=== PATIENT | female | born 1980 | race African-American/Black ===

== ENCOUNTER 2019-05-11 09:26 | Emergency (ER) | payer MEDICAID ==
[~2019-05-11] VITALS: Ht 165.1 cm; Wt 75.7 kg
[~2019-05-11 09:26] MED LIST: IBUPROFEN600 MG ORAL; NKM; TRAMADOL HCL50 MG ORAL
[2019-05-11 09:29] VITALS: BP 119/89
--- NOTE | 2019-05-11 09:34 | NUR ---
ED Nurse Note: Patient walked into ED from home c/o insect bite from unknown insect on the left posterior leg 3 days ago. patient reports it's itchy, painful 7/10, the pain does not radiate to anywhere else, the site appears red and swollen. no discharge noted. patient is alert awake x4 ambulatory steady gait, breathing unlabored and even.
--- NOTE | 2019-05-11 10:26 | Emergency Room Report ---
History of Present Illness General Chief Complaint: Skin Rash/Abscess Source: Patient Present Illness HPI This patient states that 3 days ago she was outside near her friend's pool. She noted that she may have been bitten by an insect at that time on her L. lower leg. She states over the past 3 days she has noted an area of swelling, redness and itching. She has no other lesions. She denies fever chills. She denies nausea or vomiting. She has no other complaints. Allergies: Coded Allergies: No Known Allergies (Unverified , 05/27/16) Patient History Past Medical History: none Past Surgical History: none Social History: Denies: smoking, alcohol use, drug use Now: No Reviewed Nursing Documentation: PMH: Agreed; PSxH: Agreed Nursing Documentation-PMH Past Medical History: No Stated History Review of Systems All Other Systems: negative except mentioned in HPI Physical Exam Vital Signs Date Time Temp Pulse Resp B/P (MAP) Pulse Ox O2 Delivery O2 Flow Rate FiO2 05/11/19 09:29 98.2 70 17 119/89 99 Room Air Sp02 EP Interpretation: reviewed, normal General Appearance: no apparent distress, alert, GCS 15, non-toxic Head: normocephalic, atraumatic Eyes: bilateral eye normal inspection, bilateral eye PERRL ENT: hearing grossly normal, normal pharynx, no angioedema, normal voice Neck: normal inspection Respiratory: no accessory muscle use, speaking full sentences Rectal: deferred Musculoskeletal: normal inspection, gait/station normal, normal range of motion Neurologic: alert, oriented x3, responsive, motor strength/tone normal, sensory intact, speech normal Psychiatric: judgement/insight normal, memory normal, mood/affect normal, no suicidal/homicidal ideation Skin: other - L. Leg with red, warm area 10x6cm. Central dark erythema. No fluctuance. Medical Decision Making Diagnostic Impression: Primary Impression: Insect bite Additional Impression: Cellulitis ER Course Patient has findings on exam consistent with an insect bite with what appears to be either a significant allergic reaction versus early cellulitis. As a precaution, I will go ahead and start this patient on a course of antibiotics. I will also give the patient topical hydrocortisone cream for the possible allergic component. She is nontoxic without systemic symptoms and well- appearing overall. She is given close return precautions and follow-up instructions. Last Vital Signs Date Time Temp Pulse Resp B/P (MAP) Pulse Ox O2 Delivery O2 Flow Rate FiO2 05/11/19 09:29 98.2 70 17 119/89 (99) 99 Room Air Status: improved Disposition: HOME, SELF-CARE Condition: Improved Referrals: NOT CHOSEN IPA/,REFERRING (PCP) Estrella Oliva DO May 11, 2019 10:26
[2019-05-11] MEDS ORDERED: DOXYCYCLINE MO100 MG ORAL (10:29)
[2019-05-11] MEDS ORDERED: ANTI-ITCH28 G1 TP (10:29)
[2019-05-11 10:40] VITALS: BP 119/89
--- NOTE | 2019-05-11 10:40 | NUR ---
ER DISCHARGE NOTE: Patient is cleared to be discharged per ERMD DR LOO, pt is aox4, on room air, with stable vital signs. pt was given dc and prescription instructions, pt was able to verbalize understanding, pt id band removed without complications. pt is able to ambulate with steady gait. pt took all belongings.
== END 2019-05-11 10:40 | disposition home or self-care (01) ==
LOC: EMR 10:05
DX: S80.862A Insect bite (nonvenomous), left lower leg, initial encounter (principal); L03.116 Cellulitis of left lower limb; W57.XXXA Bitten or stung by nonvenomous insect and other nonvenomous arthropods, initial encounter; Y92.008 Other place in unspecified non-institutional (private) residence as the place of occurrence of the external cause
CPT/HCPCS: 99281

== ENCOUNTER 2020-11-03 09:33 | Emergency (ER) | payer MEDICAID ==
[~2020-11-03] VITALS: Ht 165.1 cm; Wt 77.1 kg
[~2020-11-03 09:33] MED LIST changes: +ANTI-ITCH28 G1 TP; +DOXYCYCLINE MO100 MG ORAL
[2020-11-03 10:21] VITALS: BP 138/92
--- NOTE | 2020-11-03 10:21 | Emergency Room Report ---
History of Present Illness General Chief Complaint: Upper Extremity Injury Source: Patient Present Illness HPI Disclaimer: Please note that this report is being documented using DRAGON technology. This can lead to erroneous entry secondary to incorrect interpretation by the dictating instrument. HPI: 39-year-old [id number] female presents for injury to the left middle finger. Accidentally closed in a car door today. Denies skin breakdown. Notes swelling and pain. Difficulty flexing. No injury to the wrist or remainder of the upper extremity. Denies numbness or tingling. No prior history of injury. PMH: Reviewed PSH: Reviewed Allergies: Reviewed Social Hx: Reviewed Allergies: Coded Allergies: No Known Allergies (Unverified , 05/27/16) COVID-19 Screening Contact w/high risk pt: No Experienced COVID-19 symptoms?: No COVID-19 Testing performed SIGNAL INTEGRITY ENGINEER: No Patient History Now: No Review of Systems All Other Systems: negative except mentioned in HPI Physical Exam Vital Signs Date Time Temp Pulse Resp B/P (MAP) Pulse Ox O2 Delivery O2 Flow Rate FiO2 11/03/20 10:12 99.0 85 18 138/92 (107) 97 Room Air General: Awake and alert, no acute distress HEENT: NC/AT. EOMI. Resp: Normal work of breathing Skin: Intact. No abrasions, laceration or rash over the exposed skin MSK: Normal tone and bulk. Moving all extremities. Swelling of the middle finger on the left hand. Nonfusiform. No overlying erythema or skin breakdown Neuro: Awake and alert. Mentating appropriately Medical Decision Making Diagnostic Impression: Primary Impression: Finger contusion ER Course 39-year-old female presents for evaluation of left middle finger injury after slamming it in a car door this morning. No osseous injury identified on x-ray. Patient placed in a splint for comfort and stability. Treated with NSAIDs. Instructed on RICE injury care. Instructed to return new or worsening symptoms. Last Vital Signs Date Time Temp Pulse Resp B/P (MAP) Pulse Ox O2 Delivery O2 Flow Rate FiO2 11/03/20 10:12 99.0 85 18 138/92 (107) 97 Room Air Disposition: HOME, SELF-CARE Condition: Stable Scripts Ibuprofen* (MOTRIN*) 600 Mg Tablet 600 MG ORAL Q6H PRN for For Pain, #30 TAB 0 Refills Prov: Efra Traylor MD 11/03/20 Efra Traylor MD Nov 03, 2020 10:21
[2020-11-03] MEDS ORDERED: HYDROcodone/Acetamin 5/325 tab ORAL ONE (10:30)
--- NOTE | 2020-11-03 10:30 | NUR ---
ED Nurse Note: pt stated her daughter accidently slammed her hand in the car door early this morning. thought it wasn't that bad, middle finger edematous, bruised and painful to move.
[2020-11-03] MEDS ORDERED: IBUPROFEN600 M1 ORAL (10:36)
--- NOTE | 2020-11-03 11:11 | NUR ---
ER DISCHARGE NOTE: Patient is cleared to be discharged per ERMD, pt is aox4, on room air, with stable vital signs. pt was given dc and prescription instructions, pt was able to verbalize understanding. pt is able to ambulate with steady gait. pt took all belongings.
--- NOTE | 2020-11-03 11:23 | NUR ---
ED Nurse Note:ERMD splinted finger
--- NOTE | 2020-11-03 16:47 | Diagnostic Imaging Report ---
Indication: Left hand pain status post door slamming on third digit Technique: 3 views left hand Comparison: none Findings: No acute fracture. No dislocation. The joint spaces are preserved. Impression: Negative
== END 2020-11-03 11:05 | disposition home or self-care (01) ==
LOC: EMR 10:37
DX: S60.032A Contusion of left middle finger without damage to nail, initial encounter (principal); W23.0XXA Caught, crushed, jammed, or pinched between moving objects, initial encounter; Y92.9 Unspecified place or not applicable
CPT/HCPCS: 73120; Z7502; 99283